=== PATIENT | female | born 1990 ===

== ENCOUNTER 2020-05-22 15:07 | Outpatient (REF) | payer MEDICAID, SELFPAY ==
[2020-05-26 01:59] LABS: SARS-CoV-2 RNA Undetected (Undetected)
== END 2020-05-22 15:27 ==
LOC: NCHCN 15:07
PROVIDERS: PCP Naturopath; Visit Provider Registered Nurse
DX: Z11.59 Encounter for screening for other viral diseases (principal)
CPT/HCPCS: U0003

== ENCOUNTER 2020-06-30 22:16 | Outpatient (REF) | payer MEDICAID, SELFPAY ==
[2020-07-03 00:07] LABS: COVID-19 RT-PCR Result NEGATIVE (Negative)
== END 2020-06-30 22:36 ==
LOC: NCHCN 22:16
PROVIDERS: PCP Naturopath; Visit Provider Registered Nurse
DX: B34.9 Viral infection, unspecified (principal)
CPT/HCPCS: U0003